=== PATIENT | female | born 1985 | race Caucasian/White ===

== ENCOUNTER 2020-12-04 17:26 | Emergency (ER) | payer OTHER ==
[2020-12-04 18:08] LABS: BASOPHIL 0.2 % (0-2); EOSINOPHIL 0 % (0-5); HCT 42.8 % (37.0-47.0); HGB 14.2 g/dl (12.5-16.0); LYMPHOCYTE 33.5 % (15-48); MCH 29.3 pg (25.0-31.0); MCHC 33.2 g/dL (32.0-36.0); MCV 88.2 fL (78.0-100.0); MONOCYTE 9.1 % (0-12); MPV 10.6 fL (6.0-9.5); NRBC 0; PLT 196 K/uL (150-400); RBC 4.85 M/uL (4.20-5.40); RDW 13.2 % (11.5-14.0); WBC 5.1 K/uL (4.0-10.5)
[2020-12-04 19:17] LABS: BUN/CREAT RATIO (CALC) 13.3 RATIO; CREATININE 0.6 mg/dL (0.51-0.95); FOLIC ACID (SERUM) 41.5 ng/mL (8.6-58.9); POTASSIUM 3.3 mmol/L (3.5-5.1)
[2020-12-04] MEDS ORDERED: ONDANSETRON ODT4 MG PO (19:32)
== END 2020-12-04 19:43 | disposition home or self-care (01) ==
LOC: FER 17:26
PROVIDERS: Internal Medicine
DX: U07.1 COVID-19 (principal); R20.2 Paresthesia of skin
CPT/HCPCS: 36415; 80048; 82607; 82746; 84443; 85025; J3411; J3475; J7120

== ENCOUNTER 2020-12-11 10:14 | Emergency (ER) | payer OTHER ==
[~2020-12-11] VITALS: Ht 160 cm; Wt 83.9 kg
[~2020-12-11 10:14] MED LIST: ONDANSETRON ODT4 MG PO
[2020-12-11 11:34] LABS: BASOPHIL 0.5 % (0-2); EOSINOPHIL 0.8 % (0-5); HCT 41.9 % (37.0-47.0); HGB 13.6 g/dl (12.5-16.0); LYMPHOCYTE 30.6 % (15-48); MCH 29.3 pg (25.0-31.0); MCHC 32.5 g/dL (32.0-36.0); MCV 90.3 fL (78.0-100.0); MONOCYTE 9.4 % (0-12); MPV 9.8 fL (6.0-9.5); NEUTROPHIL 58.4 % (41-80); NRBC 0; PLT 518 K/uL (150-400); RBC 4.64 M/uL (4.20-5.40); RDW 12.9 % (11.5-14.0); WBC 6.2 K/uL (4.0-10.5)
[2020-12-11 11:39] LABS: BILIRUBIN NEGATIVE (NEGATIVE); BLOOD NEGATIVE Ery/uL (NEGATIVE); CLARITY CLEAR (CLEAR); COLOR YELLOW (YELLOW); GLUCOSE (U) NORMAL (NORMAL); LEUKOCYTES NEGATIVE Leu/uL (NEGATIVE); NITRITE NEGATIVE (NEGATIVE); PROTEIN NEGATIVE (NEGATIVE); UROBILINOGEN 0.2 mg/dL (0.2-1.0); pH 6.5 (5.0-9.0)
[2020-12-11 11:47] LABS: AMPHETAMINES NEGATIVE (NEGATIVE); BARBITURATES NEGATIVE (NEGATIVE); ECSTASY (MDMA) NEGATIVE (NEGATIVE); MARIJUANA (THC) NEGATIVE (NEGATIVE); METHADONE NEGATIVE (NEGATIVE); OPIATES NEGATIVE (NEGATIVE); OXYCODONE NEGATIVE (NEGATIVE)
[2020-12-11 12:00] LABS: ALBUMIN 3.1 g/dL (3.4-5.0); BILIRUBIN - TOTAL 0.4 mg/dL (0.2-1.0); C-REACTIVE PROTEIN 4.5 mg/dL (<=0.90); CREATININE 0.7 mg/dL (0.51-0.95); GLOBULIN (CALCULATION) 4.5 g/dL; POTASSIUM 3.4 mmol/L (3.5-5.1); TOTAL PROTEIN 7.6 g/dL (6.4-8.2)
[2020-12-11] MEDS ORDERED: ATARAX25 MG PO (14:40)
[2020-12-11] MEDS ORDERED: RIZATRIPTAN10 M1 PO (14:47)
== END 2020-12-11 15:15 | disposition home or self-care (01) ==
LOC: FER 10:14
PROVIDERS: Internal Medicine
DX: U07.1 COVID-19 (principal); G43.009 Migraine without aura, not intractable, without status migrainosus; I10 Essential (primary) hypertension; R41.840 Attention and concentration deficit
CPT/HCPCS: 36415; 70450; 71045; 80053; 80305; 81003; 84145; 84443; 85025; 86140; 96372; J1100; J1885; J2060; J3030; J7030; U0002

== ENCOUNTER 2020-12-14 02:46 | Emergency (ER) | payer OTHER ==
[~2020-12-14 02:46] MED LIST changes: +ATARAX25 MG PO; +RIZATRIPTAN10 M1 PO
[2020-12-14 04:03] LABS: BASOPHIL 0.4 % (0-2); EOSINOPHIL 1.2 % (0-5); HCT 40.7 % (37.0-47.0); HGB 13.3 g/dl (12.5-16.0); LYMPHOCYTE 43.7 % (15-48); MCH 29.6 pg (25.0-31.0); MCHC 32.7 g/dL (32.0-36.0); MCV 90.6 fL (78.0-100.0); MONOCYTE 11.5 % (0-12); MPV 9.7 fL (6.0-9.5); NEUTROPHIL 42.8 % (41-80); NRBC 0; PLT 513 K/uL (150-400); RBC 4.49 M/uL (4.20-5.40); RDW 13.3 % (11.5-14.0); WBC 8.3 K/uL (4.0-10.5)
[2020-12-14 04:13] LABS: BILIRUBIN NEGATIVE (NEGATIVE); BLOOD NEGATIVE Ery/uL (NEGATIVE); CLARITY CLEAR (CLEAR); COLOR YELLOW (YELLOW); GLUCOSE (U) NORMAL (NORMAL); LEUKOCYTES NEGATIVE Leu/uL (NEGATIVE); NITRITE NEGATIVE (NEGATIVE); PROTEIN NEGATIVE (NEGATIVE); SPECIFIC GRAVITY 1.015 (1.001-1.030); UROBILINOGEN 0.2 mg/dL (0.2-1.0); pH 6.5 (5.0-9.0)
[2020-12-14 04:23] LABS: ALBUMIN 3.1 g/dL (3.4-5.0); BILIRUBIN - TOTAL 0.3 mg/dL (0.2-1.0); BUN/CREAT RATIO (CALC) 11.3 RATIO; CREATININE 0.71 mg/dL (0.51-0.95); POTASSIUM 3.2 mmol/L (3.5-5.1); TOTAL PROTEIN 7.1 g/dL (6.4-8.2)
[2020-12-14 04:57] LABS: FT4 (FREE T4) 1.5 ng/dL (0.76-1.46)
== END 2020-12-14 09:17 | disposition home or self-care (01) ==
LOC: FER 02:46
PROVIDERS: Emergency Medicine Emergency Medical Services
DX: R47.01 Aphasia (principal); R29.701 NIHSS score 1; R41.0 Disorientation, unspecified; Z86.69 Personal history of other diseases of the nervous system and sense organs
CPT/HCPCS: 36415; 70553; 80053; 81003; 84439; 84443; 85025; 93005; A9579; J3480